=== PATIENT | female | born 1945 | race Caucasian/White ===

== ENCOUNTER 2016-08-05 05:40 | Day surgery (SDC) | payer MEDICARE, OTHER ==
[2016-08-02 16:02] VITALS: BMI 21.8
[~2016-08-05] VITALS: Ht 160 cm; Wt 79.9 kg
[2016-08-05] MEDS ORDERED: BUPIVACAINE 0.25% (MPF) 30 ML INJ ONE (06:51)
[2016-08-05] MEDS ORDERED: BUPIVACAINE 0.25%/EPI (SDV) 30 ML INJ ONE (06:51)
[2016-08-05] MEDS ORDERED: GELATIN SIZE 100 SPONGE ONE (06:51)
[2016-08-05] MEDS ORDERED: POLYMYXIN/BACITRACIN 1L IRRIG ONE (06:51)
[2016-08-05] MEDS ORDERED: THROMBIN 5000 UNIT VIAL ONE (06:51)
--- NOTE | 2016-08-05 07:02 | PREOPHP ---
DATE OF ADMISSION: 08/05/2016 Surgical date is 08/05. Dear Dr. De Leon, HISTORY OF PRESENT ILLNESS: Ms. Bashir is a 71-year-old woman who has significant lower back pro blems and is scheduled to undergo multilevel laminectomy, L2-L3, L3-L4 for spinal stenosis. She has been seen by Dr. Golden, the rubber chemist, and has been given cardiac clearance. She does have a h istory of pacemaker and remote placement of a stent. There currently are no cardiac symptoms. CURRENT MEDICATIONS: 1. Diltiazem 240 mg. 2. Metoprolol 50 mg. 3. Allopurinol 100 mg. 4. Atorvastatin 40 mg. 5. Plavix 75 mg. 6. Eyedrops for glaucoma. 7. Trintellix 10 mg. The latter is for depression. ALLERGIES: SHE HAS NO KNOWN ALLERGIES. HABITS: No smoking history. Rare use of alcohol. PAST MEDICAL HISTORY: Other medical problems besides her back problem are depression, glaucoma, cor onary artery disease, hyperlipidemia, gout. PREVIOUS SURGERY: Includes cataract extraction, pacemaker placement and stent. SOCIAL HISTORY: The patient currently lives in [place] for 25 years, has been a [employer] worker and history of being in the service. Her parents are . One sister is alive. She is with 3 grown children. REVIEW OF SYSTEMS: She is relatively inactive, does require a walker. She has no headaches or dizz iness. She wears eyeglasses and needs glaucoma drops. CARDIOPULMONARY: She has a history of hyper tension. A pacemaker and stent were placed approximately 2 years ago. She is followed by a local c ardiologist, and as noted, has seen Dr. Golden without evidence of current active cardiopulmonary di sease. She denies shortness of breath or coughing, but as noted, she is relatively inactive at her choice. GASTROINTESTINAL: Recent colonoscopy 6 years ago normal. GENITOURINARY: The patient needs a pad for occasional leakage. PHYSICAL EXAMINATION: VITAL SIGNS: Blood pressure 104/60, pulse is 60, she is afebrile. Height 63 inches tall, weighs 17 7 pounds. HEAD, EARS, EYES, NOSE AND THROAT: Unremarkable. NECK: Supple. No carotid bruits appreciated. CHEST: Sounds clear. HEART: Tones regular. ABDOMEN: Soft. EXTREMITIES: There is no clubbing, cyanosis or edema. She has good peripheral pulses. She has a w alker for ambulation. SKIN: The pacemaker is palpable in her left upper chest. NEUROLOGIC: There is some distal leg weakness by testing. INITIAL IMPRESSION: 1. Preoperative status for surgical treatment for spinal stenosis, multilevel. 2. Hypertension. 3. Coronary artery disease, stable, asymptomatic. 4. Hyperlipidemia. 5. History of gout. 6. Cardiac pacemaker. DISCUSSION: At this point, the patient's medical status is okay to proceed with surgery. Laborator y tests: Hemoglobin is normal, somewhat increased MCV and MCH. Random blood sugar 126. PT, PTT ar e normal. Chest x-ray is clear, and as noted, the electrocardiogram reveals electronic pacemaker ar tifact. Thank you for asking us to see her at this time. We will be glad to follow her in the hospital with you postoperatively. Dictated By: HUDSON WILKES MD SR/NTS Conf#: [id number] DID#: [id number]
[2016-08-05] MEDS ORDERED: ATOR40TA68 PO (07:20)
[2016-08-05] MEDS ORDERED: NEPA3DRO RIGHT EYE (07:20)
[2016-08-05] MEDS ORDERED: METO50TA16 PO (07:20)
[2016-08-05] MEDS ORDERED: ALLO100T PO (07:20)
[2016-08-05] MEDS ORDERED: DILT240C80 PO (07:20)
[2016-08-05] MEDS ORDERED: BIMA2.5D BOTH EYES (07:20)
[2016-08-05] MEDS ORDERED: VORT10TA PO (07:20)
[2016-08-05] MEDS ORDERED: CLOP75TA27 PO (07:20)
[2016-08-05] MEDS ORDERED: ASPI81TA3 PO (07:20)
[2016-08-05] MEDS ORDERED: VIT1TABL85 PO (07:20)
[2016-08-05] MEDS ORDERED: HYDR-2086 PO (07:20)
[2016-08-05 07:21] VITALS: Ht 160 cm; Wt 79.9 kg
[2016-08-05 07:22] VITALS: BP 126/64; PULSE 70; RESP 18
[2016-08-05 07:37] LABS: INR 0.96; PROTIME 12.8 Sec (12.2-14.2)
[2016-08-05 07:43] LABS: PARTIAL THROMBOPLASTIN TIME 24.9 Sec (25.0-35.0)
== END 2016-08-05 08:05 | disposition home or self-care (01) ==
LOC: REC 05:40 → UNDOADMIN 05:40 → SDS 05:40 → UNDODISIN 08:05 → EDSTATUS 08-06 07:30
PROVIDERS: ATTEND Specialist
DX: M48.06 Spinal stenosis, lumbar region (principal); Z53.8 Procedure and treatment not carried out for other reasons; I10 Essential (primary) hypertension; E78.5 Hyperlipidemia, unspecified; M10.9 Gout, unspecified; F32.9 Major depressive disorder, single episode, unspecified; I25.10 Atherosclerotic heart disease of native coronary artery without angina pectoris; Z95.5 Presence of coronary angioplasty implant and graft; Z79.02 Long term (current) use of antithrombotics/antiplatelets; Z95.0 Presence of cardiac pacemaker
CPT/HCPCS: 85610; 85730; J1644

== ENCOUNTER 2016-08-19 05:45 | Inpatient (IN) | payer MEDICARE, OTHER ==
[~2016-08-19] VITALS: Ht 160 cm; Wt 79.9 kg
[2016-08-19] VITALS (19 sets, daily range): BP systolic 99–128; BP diastolic 46–60; PULSE 54–70; RESP 7–23; Ht 160 cm; Wt 79.9 kg
[~2016-08-19 05:45] MED LIST: ALLO100T PO; ASPI81TA3 PO; ATOR40TA68 PO; BIMA2.5D BOTH EYES; CLOP75TA27 PO; DILT240C80 PO; HYDR-2086 PO; METO50TA16 PO; NEPA3DRO RIGHT EYE; VIT1TABL85 PO; VORT10TA PO
[2016-08-19] MEDS ORDERED: BUPIVACAINE 0.25%/EPI (SDV) 30 ML INJ ONE (06:59)
[2016-08-19] MEDS ORDERED: GELATIN SIZE 100 SPONGE ONE (06:59)
[2016-08-19] MEDS ORDERED: CEFAZOLIN 2 GM/50 ML (PMX) 50 ML IVPB SCH (07:00)
[2016-08-19] MEDS ORDERED: THROMBIN 5000 UNIT VIAL ONE (07:00)
[2016-08-19] MEDS ORDERED: POLYMYXIN/BACITRACIN 1L IRRIG ONE (07:02)
--- NOTE | 2016-08-19 07:29 | HPN ---
Date/Time of Note Date/Time of Note DATE: 08/19/16 TIME: 07:29 Interval H&P Admission Note Pt. seen H&P reviewed: No system changes NANCY YEH MD August 19, 2016 07:29
[2016-08-19] MEDS ORDERED: FENTAnyl 50 MCG/ML VIAL ONE (07:33)
[2016-08-19] MEDS ORDERED: BUPIVACAINE 0.25% (MPF) 30 ML INJ ONE (07:56)
[2016-08-19] MEDS ORDERED: DEXAMETHASONE 4 MG/ML 1 ML INJ ONE (08:06)
[2016-08-19] MEDS ORDERED: BUPIVACAINE 0.25% (MPF) 30 ML INJ INJ ONE (08:11)
[2016-08-19] MEDS ORDERED: POLYMYXIN/BACITRACIN 1L IRRIG IRR ONE (08:11)
[2016-08-19] MEDS ORDERED: FENTAnyl 50 MCG/ML VIAL IV PRN (09:30)
[2016-08-19] MEDS ORDERED: ONDANSETRON 4 MG INJ IV PRN ×2 (09:30→13:00)
[2016-08-19] MEDS ORDERED: MEPERIDINE 25 MG INJ IV PRN (09:30)
[2016-08-19] MEDS ORDERED: HYDROmorphONE (0.2 MG/ML) 10ML SYG IV PRN ×3 (09:30)
[2016-08-19] MEDS ORDERED: ALBUTEROL 0.083% (NEB) 2.5 MG/3 ML AMP HHN ONE (09:30)
[2016-08-19] MEDS ORDERED: DIPHENHYDRAMINE 50 MG INJ IV PRN (09:30)
[2016-08-19] MEDS ORDERED: HEMOSTATIC MATRIX SYG ZFS ONE ×2 (09:39→11:07)
[2016-08-19] MEDS ORDERED: THROMBIN 5000 UNIT VIAL TOP ONE ×3 (09:39→11:07)
[2016-08-19] MEDS ORDERED: GELATIN SIZE 100 SPONGE TOP ONE (09:44)
[2016-08-19] MEDS ORDERED: THROMBIN(HUM PLAS)/FIBRINOG/CA 5 ML VIAL TOP ONE (11:52)
--- NOTE | 2016-08-19 12:44 | OPR ---
Date/Time of Note Date/Time of Note DATE: 08/19/16 TIME: 12:38 Operative Report Procedure Date: August 19, 2016 Preoperative Diagnosis SPINAL STENOSIS AND SCOLIOSIS L3-L4 Postoperative Diagnosis SPINAL STENOSIS AND SCOLIOSIS L3-L4 Operation Performed LAMINECTOMY FOR SPINAL STENOSIS, L3-L4 Surgeon: NANCY YEH MD assistant passenger locomotive engineer: DANIE ALFORD MD Anesthesia: general Estimated Blood Loss: 50 - 100 ml's Complications MINIMAL DUROTOMY TOP EDGE OF L4 LAMINA. VERY SMALL DRAINAGE. PATCHED AND GLUED. WATER TIGHT CLOSURE Pt Condition Post Procedure: stable Disposition: PACU Operative\Procedure Findings EXTREMELY COMPLEX ANATOMY SECONDARY TO SCOLIOSIS AND SEVERE FACET HYPERTROPHY. DECOMPRESSION ACCOMPLISHED ANTICIPATED. L3 ROOT WIDELY DECOMPRESSED INTO FORAMEN NANCY YEH MD August 19, 2016 12:43
[2016-08-19] MEDS ORDERED: PROCHLORPERAZINE 10 MG TAB PO PRN (13:00)
[2016-08-19] MEDS ORDERED: NACL 0.9% 3 ML SYG IV SCH (13:00)
[2016-08-19] MEDS ORDERED: NALOXONE (0.4 MG/ML) INJ IV PRN (13:00)
[2016-08-19] MEDS ORDERED: HYDROCODONE/APAP (5/325) TAB PO PRN (13:00)
[2016-08-19] MEDS ORDERED: ACETAMINOPHEN 325 MG TAB PO PRN (13:00)
[2016-08-19] MEDS ORDERED: SUCCINYLCHOLINE CHLORIDE 100 MG/5 ML SYG IV ONE (13:06)
[2016-08-19] MEDS ORDERED: GLYCOPYRROLATE 0.4 MG INJ ONE (13:06)
[2016-08-19] MEDS ORDERED: ROCURONIUM 50 MG INJ ONE (13:06)
[2016-08-19] MEDS ORDERED: NEOSTIGMINE 3 MG/3 ML SYRINGE ONE (13:06)
[2016-08-19] MEDS ORDERED: CEFAZOLIN 1 GM INJ ONE (13:06)
[2016-08-19] MEDS ORDERED: LIDOCAINE 2% (SDV) 5 ML INJ ONE (13:06)
[2016-08-19] MEDS ORDERED: PROPOFOL 20 ML ONE (13:06)
[2016-08-19] MEDS: HYDROmorphONE 0.2 MG/ML PCA IV SCH (13:19)
--- NOTE | 2016-08-19 13:22 | RADRPT ---
PROCEDURE: Intraoperative fluoroscopy. CLINICAL INDICATION: Intraoperative fluoroscopy during L3-L5 decompression. TECHNIQUE: 9 spot intraoperative fluoroscopic images were provided. The images were reviewed on a high-resolution PACS workstation. COMPARISON: None available FINDINGS: Multiple spot intraoperative fluoroscopic views were provided during lumbar decompression. The imag es demonstrate this metallic probe at the level of L3-4. Subsequent images demonstrate surgical ins trumentation at the level of L3-4. The total fluoroscopy time was 38.4 seconds. IMPRESSION: 1. Multiple spot intraoperative fluoroscopic views during lumbar decompression were provided. 2. Please see operative report of the same day for further information. RPTAT: HGAS .Fransico Barron MD, Date Time Electronically viewed and signed by .Fransico Barron MD, MD on 08/19/2016 13:22 .S/
[2016-08-19] MEDS ORDERED: VITAMIN A & D 5 GM OINT PACKET TOP ONE (14:28)
[2016-08-19] MEDS: LACTATED RINGER'S 1,000 ML IV* SCH ×2 (14:36→15:53)
[2016-08-19] MEDS: CEFAZOLIN 1 GM/50 ML (PMX) 50 ML IVPB SCH ×2 (14:37→21:07)
--- NOTE | 2016-08-19 17:08 | EN ---
Date/Time of Note Date/Time of Note DATE: 08/19/16 TIME: 17:02 Event Note Surgery Surgery Event Note POST OP CHECK ORTHO SPINE S: No complaints. Comfortable. No headache. Alert. Right leg pain is gone. Feels better. O: Alert. Comfortable. RLE motor strength normal (tested in bed). Sensory normal. A: Satisfactory relief of leg pain with no change in neuro. Spinal leak precautions for minimal tear which was patched and cemented. Will check for headache and check wound in AM and if satisfactory, will begin PT for ambulation. P: 1. 10 degree gatch. 2. May move legs around. 3. May roll to eat and take meds. 4. Incentive respirometer. 5. Check in AM re possible ambulation. NANCY YEH MD August 19, 2016 17:08
[2016-08-20 00:10] VITALS: BP 129/61; PULSE 79; RESP 19
[2016-08-20] MEDS: CEFAZOLIN 1 GM/50 ML (PMX) 50 ML IVPB SCH ×2 (00:48→06:19)
[2016-08-20 05:04] VITALS: BP 130/61; PULSE 74; RESP 18
[2016-08-20 05:29] LABS: HEMATOCRIT 34.7 % (37.0-47.0); HEMOGLOBIN 11.7 g/dl (12.0-16.0)
[2016-08-20 05:47] LABS: CALCIUM 9.7 mg/dl (8.4-10.2); CREATININE 1.1 mg/dl (0.44-1.00); POTASSIUM 5.3 mmol/L (3.5-5.1)
--- NOTE | 2016-08-20 07:24 | OPR ---
DATE OF OPERATION: 08/19/2016 PREOPERATIVE DIAGNOSIS: Spinal stenosis and scoliosis, L3-L4. POSTOPERATIVE DIAGNOSIS: Spinal stenosis and scoliosis, L3-L4. OPERATION PERFORMED: Laminectomy for spinal stenosis, L3-L4. Added difficulty with rotational deformity from scoliosis SURGEON: Juan De Leon MD QUALITY ASSURANCE/R&D LAB TECHNICIAN: Joel Richter MD ANESTHESIA: General. ESTIMATED BLOOD LOSS: 50 to 100 mL. COMPLICATIONS: Minimal durotomy noted at superior aspect of L4 lamina when SAP of L4 on the right was decompressed. THere was atiny amount of drainage, which stopped when the sac was allowed to push up on the lamina, but this was patched and glued to form watertight closure out of an abundance of caution. CONDITION POSTPROCEDURE: Stable. DISPOSITION: PACU. PROCEDURE: The patient was identified in the holding unit and the surgical site was marked. Her pain complaint was right anterior thigh pain going to the medial part of the knee. She had no pain on the left side and no pain below the knee. Accordingly i felt that L3-4 was the biggest problem and the right side was a problem. We were aware from the CT scan of extremely tight anatomy underneath the superior facets at L4 superior facet as well as eccentric position of the spinous processes. Because of this, I felt that a right-sided MIS approach would be in order, but I explained to the patient that an open approach might be needed. Once in the operating room, she received a general endotracheal anesthetic and was positioned and received appropriate lines, spinal monitoring, and with care , patient was positioned face down on Deon four paperboard machine operator table. The facet joint on the right at L3-4 was marked. She was prepped and draped and an incision was made over the L3-4 facet. This was taken down to the facet and a [place] retractor was inserted. Facet was denuded of bone as was the lamina, but this was difficult because surgery tipping sinus process. Facet was drilled down to the joint capsule, but going more medially more and more underneath the spinous process became increasingly more difficult to complete this mediolateral approach and the decision was made to perform a standard open decompression bilateral laminectomy for spinal stenosis. The spinous process was isolated and Bran elevators were used to denude the contralateral left- sided soft tissue. The spinous process was then drilled off down to the lamina on the patient's left side. The ligamentum flavum was allowed to remain at this point. Once the suitable bony operation had been accomplished the ligamentum flavum was meticulouosly removed from left to right. This included a calcified hypertrophic facet capsule on the right at L3-L4 facet joint. When this was removed proximally a minimal amount of spinal fluid could be seen. A small CSF was drainage was emanating from under the most proximal portion of the L4 lamina. This is only leaking fluid if the area was bothered. If the area was not bothered and the sac was allowed to fall back into place against the lamina of L4, no fluid was coming out. We continued to take care to follow the L3 root along the foramen, which we felt was the source of most of her problems. We followed root for approximately 1 cm beyond the shoulder and I made sure that it was clear of obstruction. We then irrigated the wound carefully. We applied a dural patch and dural cement as a precaution. We then removed the retractors. We closed the fascia and muscle layer with interrupted [id number] through the skin, subcutaneous tissue with 2-0 in single stitches and we closed the skin with 4-0 Monocryl reinforced with Dermabond. At the close of the procedure, we were told that the various counts were correct. Spinal monitoring had produced equivocal useful information because of the pacemaker artifact. The patient was returned to the supine position, extubated , and transferred to the recovery room in satisfactory condition. Dictated By: JUAN APPIAH/NICKOLAS Conf#: [id number] DID#: [id number] KARLIE
[2016-08-20] MEDS: LACTATED RINGER'S 1,000 ML IV* SCH ×2 (07:30→20:10)
[2016-08-20] MEDS: DOCUSATE SODIUM 100 MG CAP PO SCH ×2 (09:06→21:21)
[2016-08-20 09:09] VITALS: BP 118/55; RESP 18
[2016-08-20] MEDS: HYDROmorphONE 0.2 MG/ML PCA IV SCH (20:08)
[2016-08-20 20:43] VITALS: BP 129/60; RESP 20
[2016-08-20] MEDS ORDERED: VORTIOXETINE HYDROBROMIDE 10 MG PO SCH (21:00)
[2016-08-20] MEDS ORDERED: DILTIAZEM (CD) 240 MG CAP PO SCH (21:00)
[2016-08-20] MEDS ORDERED: ATORVASTATIN 40 MG TAB PO SCH (21:00)
[2016-08-20] MEDS: DILTIAZEM (CD) 240 MG CAP PO SCH (21:26)
[2016-08-20] MEDS: METOPROLOL (XL) 50 MG TAB PO SCH (21:26)
[2016-08-20] MEDS: NEPAFENAC 0.1% 3 ML OPH RIGHT EYE SCH (21:26)
[2016-08-20] MEDS: ALLOPURINOL 100 MG TAB PO SCH (21:26)
[2016-08-21 07:46] VITALS: BP 136/63; RESP 18
[2016-08-21] MEDS: METOPROLOL (XL) 50 MG TAB PO SCH (09:00)
[2016-08-21] MEDS: ALLOPURINOL 100 MG TAB PO SCH (09:00)
[2016-08-21] MEDS ORDERED: B12 PO SCH (09:00)
[2016-08-21] MEDS ORDERED: FOLIC ACID PO SCH (09:00)
[2016-08-21] MEDS: DOCUSATE SODIUM 100 MG CAP PO SCH (09:00)
[2016-08-21] MEDS ORDERED: VIT D3 PO SCH (09:00)
[2016-08-21] MEDS: NEPAFENAC 0.1% 3 ML OPH RIGHT EYE SCH ×2 (09:00→12:30)
[2016-08-21] MEDS ORDERED: B2 PO SCH (09:00)
[2016-08-21] MEDS ORDERED: B6 PO SCH (09:00)
[2016-08-21] MEDS: DILTIAZEM (CD) 240 MG CAP PO SCH (09:00)
[2016-08-21] MEDS: HYDROCODONE/APAP (5/325) TAB PO PRN ×2 (09:07→14:28)
[2016-08-21 09:53] LABS: ADD SCAN DIFF NO
[2016-08-21 09:59] LABS: BASOPHILS % 0.1 % (0.0-2.0); EOSINOPHILS # 0.1 10^3/ul (0.0-0.5); EOSINOPHILS % 0.3 % (0.0-7.0); HEMATOCRIT 35.5 % (37.0-47.0); HEMOGLOBIN 11.8 g/dl (12.0-16.0); LYMPHOCYTES # 1.2 10^3/ul (0.8-2.9); LYMPHOCYTES % 7.6 % (15.0-51.0); MEAN CORPUSCULAR HGB CONC 33.2 g/dl (32.0-37.0); MEAN CORPUSCULAR VOLUME 105.3 fl (82.0-101.0); MEAN PLATELET VOLUME 10.5 fl (7.4-10.4); MONOCYTE # 1.4 10^3/ul (0.3-0.9); NEUTROPHIL # 13.2 10^3/ul (1.6-7.5); NEUTROPHILS % 82.4 % (39.0-77.0); PLATELET COUNT 161 10^3/UL (140-415); RED BLOOD COUNT 3.37 10^6/ul (4.20-5.40); RED CELL DISTRIBUTION WIDTH 14.1 % (11.5-14.5)
[2016-08-21 10:13] LABS: POTASSIUM 4.3 mmol/L (3.5-5.1)
[2016-08-21 10:16] LABS: CREATININE 1.09 mg/dl (0.44-1.00)
[2016-08-21 10:17] LABS: CALCIUM 9.5 mg/dl (8.4-10.2)
--- NOTE | 2016-08-23 08:06 | DS ---
Date/Time of Note Date/Time of Note DATE: 08/23/16 TIME: 08:05 Discharge Summary Admission/Discharge Info Admit Date/Time August 19, 2016 at 05:45 Discharge Date/Time August 21, 2016 at 15:35 Final Diagnosis Spinal stenosis and scoliosis, L3-L4 Patient Condition: Fair Hospital Course Patient did well postoperatively. Her diet and activity were advanced as tolerated. She did well with physical therapy and is discharged home in safe condition on postop day #2 Home Meds Reported Medications Vit D3/Folic Acid/B2/B6/B12 (Folgard Tablet) 1 Each Tablet, 1 TAB PO DAILY, TAB 08/05/16 Nepafenac* ([place]* 0.1%) 3 Ml Drops.susp, 1 DROP RIGHT EYE TID, EA 08/05/16 Bimatoprost* (Lumigan*) 0.01%-2.5 Ml Opht Drops, 1 DROP BOTH EYES HS, EA 08/05/16 Vortioxetine Hydrobromide (Brintellix) 10 Mg Tablet, 10 MG PO DAILY, TAB 08/05/16 Aspirin* (Aspirin* Chew) 81 Mg Tab.chew, 81 MG PO DAILY, TAB.CHEW 08/05/16 Clopidogrel Bisulfate (Clopidogrel) 75 Mg Tablet, 75 MG PO DAILY, #30 TAB 08/05/16 Atorvastatin* (Atorvastatin*) 40 Mg Tablet, 40 MG PO QHS, #30 TAB 08/05/16 Allopurinol* (Allopurinol*) 100 Mg Tablet, 100 MG PO DAILY, TAB 08/05/16 Metoprolol Succinate* (Toprol XL*) 50 Mg Tab.er.24h, 50 MG PO DAILY, #30 TAB 08/05/16 Diltiazem Hcl* (Tiazac) 240 Mg Capsule.sa, 240 MG PO DAILY, #30 CAP 08/05/16 Discontinued Reported Medications Hydrocodone Bit-Acetaminophen* (Vicodin*) 5-300 Tab, 1 TAB PO Q4H Y for PAIN, TAB 08/05/16 Follow-up Plan Follow-up with Dr. De Leon in 1-2 weeks Pending Labs Laboratory Tests Test 08/22/16 12:40 Lab Scanned Report REFERENCE [id number] RASHAD HUYNH August 23, 2016 08:06
== END 2016-08-21 15:35 | disposition home or self-care (01) | DRG 519 ==
LOC: REC 05:45 → MS1 14:12
PROVIDERS: ADMIT Specialist; ATTEND Specialist
PROC: 00UT0JZ Supplement Spinal Meninges with Synthetic Substitute, Open Approach (ICD-10-PCS; 2016-08-19)
PROC: 01NB0ZZ Release Lumbar Nerve, Open Approach (ICD-10-PCS; principal; 2016-08-19 07:30)
DX: M48.06 Spinal stenosis, lumbar region (principal); G97.41 Accidental puncture or laceration of dura during a procedure; M41.9 Scoliosis, unspecified; Y83.8 Other surgical procedures as the cause of abnormal reaction of the patient, or of later complication, without mention of misadventure at the time of the procedure; Y92.234 Operating room of hospital as the place of occurrence of the external cause
CPT/HCPCS: 72114; 80048; 85014; 85018; 85025; 87086; 94664; 97116; 97163; 97530; C9250; J0330; J0690; J1100; J1170; J1644; J2710; J3010; J7120